=== PATIENT | male | born 1945 | race Caucasian/White ===

== ENCOUNTER 2020-11-14 12:30 | Outpatient (RCR) | payer MEDICARE, SELFPAY ==
--- NOTE | 2020-10-16 13:23 | PTOPEVAL ---
PHYSICAL THERAPY EVALUATION AND PLAN OF CARE Thank you for referring Pipo Deshpande to [facility].? The patient is scheduled to be seen for therapy? 2x/month for 1 month. Please review, sign, date and return this plan of care STEVEN. I agree with and certify that the following plan of care is medically necessary. Referring Physician Date Attending Provider: Riccardo Valente MD Evaluation Diagnosis right shoulder pain Subjective Information Patient reports that shoulder Query Text:As Reported By Patient/ pain started several months Family ago the shoulder started hurting. He received an injection a week ago and feels much better today. Pain Frequency Acute Greatest Pain Intensity 0 Pain Score Pain Score 0: Self Report Interventions Used Interventions Used By Clinicians Exercise Other Alleviating Interventions injections Upper Extremity Range of Motion Scapular/ Shoulder Range of Motion Bilateral Shoulder Flexion - Active 140 Shoulder Abduction - Active 140 Shoulder Medial Rotation - Active L1 Query Text:Reach Behind the Back Shoulder Lateral Rotation - Active T1 Query Text:Reach Behind the Head Upper Extremity Muscle Strength Testing Scapular/Shoulder Left Shoulder Flexion Strength 4+ Good + Shoulder Abduction Strength 4 Good Shoulder Medial Rotation Strength 4+ Good + Shoulder Lateral Rotation Strength 4+ Good + Right Shoulder Flexion Strength 4+ Good + Shoulder Abduction Strength 4+ Good + Shoulder Medial Rotation Strength 5 Normal Shoulder Lateral Rotation Strength 4 Good Palpation Assessment Palpation Palpation trigger points noted to upper trapezius, subscapularis, and pectoralis on right General Exercise General Exercises Side Right Exercise Location shoulder Exercise Type Active,Resistive,Stretching Exercise Description green band resisted: Query Text:Record Sets, Reps, -bilateral shoulder extension Resistance, and Position x10 -right shoulder external rotation x10 -shoulder internal rotation x10 -bilateral scaption x10 -bilateral horizontal abduction x10 -sitting upper trapezius stretch [id number] each side Manual Therapy Manual Therapy Side Right Manual Therapy Location Shoulder Patient Position Supine Treatment
--- NOTE | 2020-11-14 12:49 | PTOPEVAL ---
PHYSICAL THERAPY DISCHARGE NOTE Thank you for referring Pipo Deshpande to [facility].? Please review, sign, date and return this plan of care STEVEN. I agree with and certify that the following plan of care is medically necessary. Referring Physician Date Attending Provider: Riccardo Valente MD Discharge Diagnosis right shoulder pain Subjective Information No pain at all in the shoulder Query Text:As Reported By Patient/ except when he used too heavy Family of a weight to do exercises. He pulled back on the amount of weight and feels better . Pain Assessment Timing of Pain Assessment Timing of Pain Assessment Assessment Self Report Self Report Pain Level 0 Self Report Pain Assessment Right Shoulder(s) Reported Pain Level 0 Pain Score Pain Score 0: Self Report Upper Extremity Range of Motion Scapular/ Shoulder Range of Motion Bilateral Shoulder Flexion - Active 150 Shoulder Abduction - Active 150 Shoulder Medial Rotation - Active L2 Query Text:Reach Behind the Back Shoulder Lateral Rotation - Active T1 Query Text:Reach Behind the Head Upper Extremity Muscle Strength Testing Scapular/Shoulder Left Shoulder Flexion Strength 5 Normal Shoulder Abduction Strength 5 Normal Shoulder Medial Rotation Strength 5 Normal Shoulder Lateral Rotation Strength 5 Normal Right Shoulder Flexion Strength 5 Normal Shoulder Abduction Strength 5 Normal Shoulder Medial Rotation Strength 5 Normal Shoulder Lateral Rotation Strength 5 Normal General Exercise General Exercises Side Right Exercise Location shoulder Exercise Type Active,Resistive,Stretching Exercise Description blue band resisted: Query Text:Record Sets, Reps, -bilateral shoulder extension Resistance, and Position x10 -right shoulder external rotation x10 -shoulder internal rotation x10 -bilateral scaption x10 -bilateral horizontal abduction x10 -sitting upper trapezius stretch [id number] each side -overhead press 5# -bilateral scaption 5# -bent over row 5# Rehab Teaching Rehab Teaching Teaching Topic Rehab Teaching Topic Components Diagnosis,Follow-up Recommendations,Home Program As Pertains To Safety,Technique,Therapy Prognosis Reci
== END 2020-11-15 08:56 | disposition home or self-care (01) ==
LOC: ANHPT 12:30
PROVIDERS: PCP Family Medicine; Visit Provider Orthopaedic Surgery
DX: M25.511 Pain in right shoulder (principal)
CPT/HCPCS: 97110; 97140; 97161

== ENCOUNTER → 2021-05-02 09:04 | Outpatient (REF) | payer MEDICARE, SELFPAY | LOC: ANHLAB 09:04 | PROVIDERS: PCP Family Medicine; Visit Provider Nurse Practitioner | DX: C44.622 Squamous cell carcinoma of skin of right upper limb, including shoulder (principal) | CPT/HCPCS: 88305 ==

== ENCOUNTER → 2021-06-17 10:33 | Outpatient (REF) | payer MEDICARE, SELFPAY | LOC: ANHLAB 10:33 | PROVIDERS: PCP Family Medicine; Visit Provider Nurse Practitioner | DX: C44.622 Squamous cell carcinoma of skin of right upper limb, including shoulder (principal) | CPT/HCPCS: 88305; 88331 ==

== ENCOUNTER 2021-10-25 13:02 | Observation (INO) | payer MEDICARE, SELFPAY ==
[2021-10-25] VITALS (30 sets, daily range): BP systolic 138–169; BP diastolic 55–84; PULSE 58–68; RESP 16–25; TEMP 36.1–36.6; O2SAT 91–100; BMI 32.9
--- NOTE | ~2021-10-25 | XR_ITS ---
XR chest 2V 10/25/2021 14:03 Indication: Shortness of breath Procedure: 2 view chest Comparison: 10/28/2009 Findings: Status post median sternotomy for CABG. Borderline heart size. Bibasilar infiltrates may re present atelectasis and/or pneumonia. No significant effusion, edema or pneumothorax. Impression: 1: Bibasilar infiltrates may represent atelectasis and/or pneumonia. Reviewed, dictated and finalized at location B. Impression: 1: Bibasilar infiltrates may represent atelectasis and/or pneumonia.
--- NOTE | ~2021-10-25 | US_ITS ---
EXAMINATION: US renal BI DATE: 10/26/2021 10:01 INDICATION: Renal failure. TECHNIQUE: Multiple ultrasound grayscale images of the kidneys were obtained. COMPARISON: Ultrasound kidneys 03/22/2014 FINDINGS: The right kidney measures 10.3 x 6.1 x 6.2 cm. The left kidney measures 11.2 x 5.5 x 6.0 cm. The kidn eys demonstrate normal parenchymal echogenicity. There are cysts in the kidneys measuring up to 3.4 c m on the left. There is no hydronephrosis. The bladder is normal. IMPRESSION: 1. Normal kidney sizes. No hydronephrosis. Reviewed, dictated and finalized at location A.
--- NOTE | ~2021-10-25 | XR_ITS ---
EXAMINATION: XR chest 1V portable DATE: 10/27/2021 09:08 INDICATION: Shortness of breath. TECHNIQUE: A single frontal view of the chest was obtained. COMPARISON: Chest 2 views 10/25/2021, CT abdomen and pelvis 10/26/2009 FINDINGS: There are reticular opacities at the lung bases. No pleural effusion or pneumothorax. The h eart size is normal. Median sternotomy wires are noted. Retained epicardial pacer wires are noted. Th ere is a suture anchor in left humeral head. There are changes of distal left clavicle resection. IMPRESSION: 1. Stable reticular opacities at the lung bases, which may be atelectasis/scarring or mild pulmonary edema. Reviewed, dictated and finalized at location A. IMPRESSION: 1. Stable reticular opacities at the lung bases, which may be atelectasis/scarr ing or mild pulmonary edema.
--- NOTE | ~2021-10-25 | US_ITS ---
EXAMINATION: US venous doppler [facility] DATE: 10/26/2021 10:01 INDICATION: Lower limb edema. TECHNIQUE: Grayscale ultrasound images without and with compression and Doppler ultrasound images of the bilateral lower extremity veins were obtained. COMPARISON: None. FINDINGS: The visualized portions of right common femoral vein, profunda (deep) femoral vein, femoral vein, pop liteal vein, peroneal veins, posterior tibial veins, and greater saphenous vein outflow are patent. The visualized portions of left common femoral vein, profunda femoral vein, femoral vein, popliteal v ein, peroneal veins, posterior tibial veins, and greater saphenous vein outflow are patent. There is a moderate-sized left Miller's cyst. IMPRESSION: 1. No deep venous thrombosis. 2. Moderate-sized left Miller's cyst. Reviewed, dictated and finalized at location A.
--- NOTE | 2021-10-25 13:32 | ECG_ITS ---
Measurements Intervals [place] Rate: 61 P: -64 CA: 230 QRS: 82 QRSD: 100 T: -75 QT: 411 QTc: 416 Interpretive Statements SINUS RHYTHM WITH FIRST DEGREE AV BLOCK NONSPECIFIC ST-T CHANGES NO PREVIOUS ECG AVAILABLE FOR COMPARISON Electronically Signed On 10-26-2021 13:23:11 CDT by Sylvia Veliz M.D.
--- NOTE | 2021-10-25 13:45 | ED.SOB ---
HPI - SOB/Dyspnea General Chief Complaint: Shortness of Breath/Dyspnea Stated Complaint: sent by PCP for c/o SOB Time Seen by Provider: 10/25/21 13:32 History of Present Illness HPI Narrative: 76-year-old history of high blood pressure diabetes presents emergency room for gradual onset of shortness of breath. Patient states he is not experiencing exertional dyspnea for the last 3 weeks. Denies any chest pain. Patient is also noted increased swelling to his bilateral ankles. No known history of CHF Related Data Home Medications Medication Instructions Recorded Confirmed aloe vera 25 mg capsule See Rx Instructions PO .COMPLEX 03/08/19 08/29/21 cholecalciferol (vitamin D3) 50 2,000 unit PO DAILY 03/08/19 08/29/21 mcg (2,000 unit) tablet irbesartan 300 mg tablet 300 mg PO DAILY 03/08/19 08/29/21 L.acidophil-L.casei-B.bifid-B.longum-FOS 1 cap PO DAILY 06/21/19 08/29/21 2 billion cell-50 mg capsule (Probiotic Blend) amlodipine 5 mg tablet 10 mg PO DAILY 08/29/21 08/29/21 Allergies Allergy/AdvReac Type Severity Reaction Status Date / Time iodine Allergy Unknown Anaphylaxis Verified 10/25/21 13:02 SHELLFISH Allergy Unknown Unknown Uncoded 10/25/21 13:02 Review of Systems Review of Systems: CONSTITUTIONAL: Denies fever, chills, or sweats. EYES: Denies visual changes, redness, or discharge. ENT: Denies rhinorrhea, congestion, sore throat, or otalgia. CARDIOVASCULAR: Reports lower extremity edema RESPIRATORY: Reports dyspnea. GASTROINTESTINAL: Denies abdominal pain, nausea, vomiting, or diarrhea. GENITOURINARY: Denies dysuria or hematuria. SKIN: Denies rash or itching. MUSCULOSKELETAL: Denies back pain, joint pain, or myalgia. NEUROLOGIC: Denies headache, numbness, dizziness, or weakness. PSYCHIATRIC: Denies anxiety or depression. [facility] Past Medical History Medical History Atrial flutter Benign hypertension CKD (chronic kidney disease) stage 3, GFR 30-59 ml/min Diabetes History of cardioversion Hyperlipidemia LDL goal <70 Ischemic cardiomyopathy Proteinuria Type 2 diabetes mellitus without complication, without long-term current use of insulin last known A1c january 2020 6.2 pt states he had one in september 2020, results unknown Ulcerative colitis Dr. Cardona, will be going to [facility] Unspecified osteoarthritis, unspecified site right wrist Surgical History Surgical History H/O rotator cuff surgery History of heart surgery (~04/07/16) DC cardioversion History of knee replacement Left knee January 2016 Family History Family History Mother Family history of cardiovascular disease Hypertension Sibling Multiple sclerosis Social History Social History Smoking status: Former smoker Tobacco type: cigarettes Second hand tobacco smoke exposure: No Smoking end date: 03/09/98 Additional smoking assessment comments: 2 PPD, 30 years Alcohol intake: former Substance use: never Substance use type: does not use Gender identity (if verbalized by the patient): Male Exam Narrative: GENERAL: Well-appearing, well-nourished, no physical limitations, and in no acute distress. HEAD: Normocephalic, atraumatic. EYES: Conjunctivae normal, PERRLA and EOMI. CHEST: Clear to auscultation. No respiratory distress. No wheezes rales or rhonchi. No tenderness. HEART: Regular rate and rhythm. No murmur heard. Normal peripheral pulses. ABDOMEN: Soft, nontender, distended, normal active bowel sounds. BACK: No cervical/thoracic/lumbar tenderness, step-offs, bony abnormality; FROM EXTREMITIES: Normal range of motion. +3 pitting edema bilateral ankles. No clubbing or cyanosis SKIN: Warm, dry, no rash. No noted wounds NEURO: No focal deficits. Alert and oriented x3. MAEW. CN's II-XI intact
[2021-10-25 14:04] LABS: Basophils Absolute Auto 0.1 K/mm3 (0.0-0.1); Basophils Percent Auto 0.7 % (0.2-1.2); Eosinophils Absolute Auto 0.1 K/mm3 (0-0.3); Eosinophils Percent Auto 0.7 % (0-4.4); Hematocrit 33.1 % (42.0-52.0); Hemoglobin 10.7 g/dL (14.0-18.0); Immature Granulocyte Absolute 0.05 K/mm3 (0.00-0.031); Immature Granulocyte Percent A 0.5 % (0-0.5); Lymphocytes Absolute Auto 1.18 K/mm3 (0.9-3.2); Lymphocytes Percent Auto 11.2 % (18.3-44.2); Mean Corpuscular HGB Conc 32.3 g/dl (32-36); Mean Corpuscular Hemoglobin 30.5 pg (26-34); Mean Corpuscular Volume 94.3 fl (80-100); Mean Platelet Volume 10.1 fl (7.4-10.4); Monocytes Absolute Auto 0.7 K/mm3 (0.1-0.6); Monocytes Percent Auto 6.5 % (2.6-8.5); Neutrophils Absolute Auto 8.5 K/mm3 (1.3-6.7); Neutrophils Percent Auto 80.4 % (45.5-73.1); Platelet Count Result 301 k/mm3 (150-375); Red Blood Count 3.51 M/mm3 (4.6-6.20); Red Cell Distribution Width 13.5 % (11.5-14.5); White Blood Count 10.5 K/mm3 (4.5-10.0)
[2021-10-25 14:14] LABS: INR 1.4; Prothrombin Time 16.7 Seconds (11.1-14.7)
[2021-10-25 14:15] LABS: Partial Thromboplastin Time 29.6 SECONDS (22.3-36.8)
[2021-10-25 14:16] LABS: Alanine Aminotransferase 25 U/L (6-50); Albumin Level 3.9 g/dL (3.5-5.1); Alkaline Phosphatase 63 U/L (38-126); Anion Gap 12 mmol/L (8-16); Aspartate Amino Transferase 21 U/L (17-59); Bilirubin,Total 0.5 mg/dL (0.2-1.3); Blood Urea Nitrogen 41 mg/dL (9-20); Calcium 8.6 mg/dL (8.4-10.2); Carbon Dioxide 20 mmol/L (22-30); Chloride 107 mmol/L (98-107); Estimated CRCL calculation 20 ml/min; Estimated Glomerular Filt Rate 20; Glucose 141 mg/dL (65-110); Potassium 4.8 mmol/L (3.4-5.0); Sodium 139 mmol/L (137-145)
[2021-10-25 14:28] LABS: NT Pro B Type Natriuretic Pept 2470 pg/mL (5-100); Troponin I 0.013 ng/mL (0.000-0.034)
[2021-10-25 15:13] LABS: Appearance Urine Clear (Clear); Bilirubin Urine Negative (Negative); Blood Urine Trace-lysed (Negative); Color Urine Yellow (Yellow); Glucose Urine UA Negative (Negative); Ketones Urine Negative (Negative); Leukocyte Esterase Ur Negative LEU/UL (Negative); Nitrate Urine Negative (Negative); Protein Urine 3+ mg/dL (Negative); Urobilinogen Urine 0.2 mg/dL (<2.0); pH Urine 5.5 (5.0-9.0)
[2021-10-25 15:20] LABS: Mucus Urine Rare /lpf; RBC Urine 0-2 /hpf (0-2); WBC Urine 0-3 /hpf
[2021-10-25 15:27] LABS: Add Urine Microscopic? YES
--- NOTE | 2021-10-25 16:30 | PM.IMHP ---
H&P: HPI History of Present Illness Date/Time: 10/25/21 16:30 Chief Complaint: Shortness of breath. Narrative: This is a pleasant 76-year-old male with history of ischemic cardiomyopathy, congestive heart failure, atrial flutter, hypertension, chronic kidney disease, and diabetes who presented to the emergency department from home for evaluation of shortness of breath. Over the last several weeks he has had progressive dyspnea on lesser and lesser exertion and he has also noticed swelling in his lower extremities. He has not been sleeping well due to due to nocturia proximally 3 to 4 times a night however it does sound as though he has had orthopnea as well. He has occasional midsternal chest heaviness when he is feeling especially short of breath though he denies that it is specifically related to exertion. He has had a mild cough which is not unusual for him and it is not productive. Today he was seen at his doctor's office and due to his symptoms he was referred to the ER. Vital signs were stable on arrival in his SpO2 has been well within normal limits on room air. Pertinent labs include a WBC of 10.5, D-dimer 1.00, BUN 41, creatinine 3.10, troponin 0.013, and proBNP 2470. Chest x-ray showed bibasilar infiltrates with may represent atelectasis and or pneumonia though he gives no history to suggest pneumonia. Due to his symptoms he is being admitted overnight for diuresis. At the time my evaluation he is resting comfortably and has no specific complaints. Review of Systems Review of Systems: Twelve systems were reviewed. No fever, chills, or sweats. He denies sinus congestion and shortness of breath. No sick contacts. He has had a mild cough though it is not productive; he goes on to say this is not unusual for him. Appetite has been good. No nausea, vomiting, or diarrhea. He denies dysuria. He does get up frequently in the middle of the night to use the restroom and reports only going small amounts at a time. He is not certain whether not he is able to fully empty his bladder. He denies prior history of urinary retention. He believes his glucose has been stable. No history of sleep apnea but concerns for such. As documented, all other systems were reviewed and are negative. 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 Code status: Full code. Smoking packs per day: 3 Smoking cigarettes per day: 60.0 Years smoked: 30 Smoking pack-years: 90.00 Smoking status: Former smoker Second hand tobacco smoke exposure: No Additional smoking assessment comments: Quit in 1998. Alcohol intake: former Substance use: never Substance use type: does not use Additional living arrangements comments: The patient lives with his in [place]. 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 Spiritual care concerns: No Meds Home Medica
[2021-10-25] MEDS: FUROSEMIDE INJ 40 MG/4 ML VIAL IV PUSH (17:18)
--- NOTE | 2021-10-25 18:21 | ADMGEN ---
This patient, Pipo Deshpande, was admitted to 2 Medical Room 256-. Patient/family oriented to hospital policies and general routines including ID bracelet, bed and alarms, visiting hours, pain management, procedures, bathroom and other care routines, personal items, smoking policy, room service/diet, and visiting hours. Information on how to activate the Rapid Response Team has been discussed. Patient/Family are encouraged to report perceived risks to care and to ask questions if they do not understand what they are told or what they should do.
[2021-10-25] MEDS: INSULIN GLARGINE (*BKC) 100 UNITS/ML 28 UNITS SUB-Q (23:19)
[2021-10-25 23:37] LABS: Glucose Point of Care 208 mg/dl (65-105)
[2021-10-26] VITALS (11 sets, daily range): BP systolic 127–143; BP diastolic 57–65; PULSE 44–75; RESP 16–18; TEMP 36.4–36.9; O2SAT 95–96
[2021-10-26 05:32] LABS: Hematocrit 31.7 % (42.0-52.0); Hemoglobin 10.3 g/dL (14.0-18.0); Mean Corpuscular HGB Conc 32.5 g/dl (32-36); Mean Corpuscular Hemoglobin 30.6 pg (26-34); Mean Corpuscular Volume 94.1 fl (80-100); Mean Platelet Volume 10.7 fl (7.4-10.4); Platelet Count Result 296 k/mm3 (150-375); Red Blood Count 3.37 M/mm3 (4.6-6.20); Red Cell Distribution Width 13.3 % (11.5-14.5); White Blood Count 10.8 K/mm3 (4.5-10.0)
[2021-10-26 05:38] LABS: Hemoglobin A1C 7.4 % (<5.7)
[2021-10-26 05:40] LABS: Anion Gap 9 mmol/L (8-16); Blood Urea Nitrogen 38 mg/dL (9-20); Calcium 8.4 mg/dL (8.4-10.2); Carbon Dioxide 24 mmol/L (22-30); Chloride 109 mmol/L (98-107); Estimated CRCL calculation 20 ml/min; Estimated Glomerular Filt Rate 20; Glucose 130 mg/dL (65-110); Magnesium 2.2 mg/dL (1.6-2.3); Potassium 4.6 mmol/L (3.4-5.0); Sodium 142 mmol/L (137-145)
[2021-10-26] MEDS: LEVOTHYROXINE SODIUM 25 MCG TABLET PO (06:20)
[2021-10-26 08:16] LABS: Glucose Point of Care 97 mg/dl (65-105)
[2021-10-26] MEDS: ENOXAPARIN 30 MG/0.3 ML SYRINGE SUB-Q (09:20)
[2021-10-26] MEDS: IRBESARTAN 150 MG TABLET 300 MG PO (09:20)
[2021-10-26] MEDS: PRAVASTATIN SODIUM 20 MG TABLET PO (09:20)
[2021-10-26] MEDS: FUROSEMIDE INJ 40 MG/4 ML VIAL IV PUSH ×2 (09:20→17:17)
--- NOTE | 2021-10-26 10:45 | PM.IMPN ---
Progress Note: A&P Assessment and Plan (1) Acute exacerbation of congestive heart failure: Code(s): I50.9 - Heart failure, unspecified Status: Acute Assessment and Plan: Appears to have an exacerbation of congestive heart failure type unknown though he does have a history of ischemic cardiomyopathy echocardiogram ordered renal function 38/3.10, creatinine in 2.2-2.25 BNP 2470 Diuresis cautiously Increase to 40mg IV BID daily weights Trend urine output Trend labs (2) Chronic kidney disease: Code(s): N18.9 - Chronic kidney disease, unspecified Status: Acute Assessment and Plan: Current BUN/Cr 38/3.10 Labs from 01/2021 appears to be 2.2-2.25 Avoid nephrotoxic medications Strict I&Os Bladder scan to check for retention Renal ultrasound normal kidneys, no hydronephrosis Trend closely with diuresis Obtain urine studies, to calculate FENa score Consult Dr. Abreu (3) Insulin dependent type 2 diabetes mellitus: Code(s): E11.9 - Type 2 diabetes mellitus without complications; Z79.4 - penitentiary (current) use of insulin Status: Acute Assessment and Plan: Current glucose 130 Continue basal insulin Initiate sliding scale insulin Accu-Cheks hypoglycemic protocol hemoglobin A1c 7.4 (4) Mixed hyperlipidemia: Code(s): E78.2 - Mixed hyperlipidemia Status: Acute Assessment and Plan: Continue statin; LFTs within normal limits. (5) Benign hypertension: Code(s): I10 - Essential (primary) hypertension Status: Acute Assessment and Plan: BP 127/58. Continue irbesartan 300mg PO daily, amlodipine 5mg PO at night Trend BP Adjust therapy as indicated (6) Hypothyroidism: Code(s): E03.9 - Hypothyroidism, unspecified Status: Acute Assessment and Plan: Continue levothyroxine TSH 3.770 (7) Abnormal chest x-ray: Code(s): R93.89 - Abnormal findings on diagnostic imaging of other specified body structures Status: Acute Assessment and Plan: He does not give a history to suggest pneumonia. Probable atelectasis, encourage incentive spirometry. (8) Elevated d-dimer: Code(s): R79.89 - Other specified abnormal findings of blood chemistry Status: Acute Assessment and Plan: D. Dimer elevated at 1.00 Edema bilaterally Venous doppler ordered VQ scan cancelled Does not seem to be a PE, no tachycardia, shortness of breath, oxygen supplementation not needed. Time Spent With Patient Time with patient: Greater than 35 minutes Subjective Date/time seen: 10/26/21 1045 Interval history: 10/26/211044 Patient is doing ok. He denies any chest pain, shortness of breath, weakness, fatigue. He stated that he does not feel sick, but he knows that he is. He did state that he sees Dr. Abreu for his renal function, and stated that he has his labs checked every 6 months and his creatinine has not been that high. 10/25/21 16:30 This is a pleasant 76-year-old male with history of ischemic cardiomyopathy, congestive heart failure, atrial flutter, hypertension, chronic kidney disease, and diabetes who presented to the emergency department from home for evaluation of shortness of breath. Over the last several weeks he has had progressive dyspnea on lesser and lesser exertion and he has also noticed swelling in his lower extremities. He has not been sleeping well due to due to nocturia proximally 3 to 4 times a night however it does sound as though he has had orthopnea as well. He has occasional midsternal chest heaviness when he is feeling especially short of breath though he denies that it is specifically related to exertion. He has had a mild cough which is not unusual for him and it is not productive. Today he was seen at his doctor's office and due to his symptoms he was referred to the ER. Vital signs were stable
--- NOTE | 2021-10-26 10:45 | P.PNIM_ITS ---
Progress Note: A&P Assessment and Plan (1) Acute exacerbation of congestive heart failure: Code(s): I50.9 - Heart failure, unspecified Status: Acute Assessment and Plan: * Appears to have an exacerbation of congestive heart failure * type unknown though he does have a history of ischemic cardiomyopathy * echocardiogram ordered * renal function 38/3.10, creatinine in 2.2-2.25 * BNP 2470 * Diuresis cautiously * Increase to 40mg IV BID * daily weights * Trend urine output * Trend labs (2) Chronic kidney disease: Code(s): N18.9 - Chronic kidney disease, unspecified Status: Acute Assessment and Plan: * Current BUN/Cr 38/3.10 * Labs from 01/2021 appears to be 2.2-2.25 * Avoid nephrotoxic medications * Strict I&Os * Bladder scan to check for retention * Renal ultrasound normal kidneys, no hydronephrosis * Trend closely with diuresis * Obtain urine studies, to calculate FENa score * Consult Dr. 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 (5) Benign hypertension: Code(s): I10 - Essential (primary) hypertension Status: Acute Assessment and Plan: * BP 127/58. * Continue irbesartan 300mg PO daily, amlodipine 5mg PO at night * Trend BP * Adjust therapy as indicated (6) Hypothyroidism: Code(s): E03.9 - Hypothyroidism, unspecified Status: Acute Assessment and Plan: * Continue levothyroxine * TSH 3.770 (7) Abnormal chest x-ray: Code(s): R93.89 - Abnormal findings on diagnostic imaging of other specified body structures Status: Acute Assessment and Plan: * He does not give a history to suggest pneumonia. Probable atelectasis, encourage incentive spirometry. (8) Elevated d-dimer: Code(s): R79.89 - Other specified abnormal findings of blood chemistry Status: Acute Assessment and Plan: * D. Dimer elevated at 1.00 * Edema bilaterally * Venous doppler ordered * VQ scan cancelled * Does not seem to be a PE, no tachycardia, shortness of breath, oxygen supplementation not needed. Time Spent With Patient Time with patient: Greater than 35 minutes Subjective Date/time seen: 10/26/21 1045 Interval history: 10/26/21 104 Patient is doing ok. He denies any chest pain, shortness of breath, weakness, fatigue. He stated that he does not feel sick, but he knows that he is. He did state that he sees Dr. Abreu for his renal function, and stated that he has his labs checked every 6 months and his creatinine has not been that high. 10/25/21 16:30 This is a pleasant 76-year-old male with history of ischemic cardiomyopathy, congestive heart failure, atrial flutter, hypertension, chronic kidney disease, and diabetes who presented to the emergency department from home for evaluation of shortness of breath. Over the last several weeks he has had progressive dyspnea on lesser a
[2021-10-26 10:53] LABS: Creatinine Urine 59.8 mg/dL; Urea Random Urine 319 MG/DL
[2021-10-26 10:58] LABS: Sodium Urine Random 128 meq/L
[2021-10-26 11:57] LABS: Glucose Point of Care 125 mg/dl (65-105)
--- NOTE | 2021-10-26 15:46 | PM.CNCAR ---
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: Code(s): I50.41 - Acute combined systolic (congestive) and diastolic (congestive) heart failure Status: Acute Assessment and Plan: New onset CHF, EF 45% Aggravated by Na+ intake, worsening renal fxn and recurrent atrial flutter Improving w/ IV diuretic Agree w/ current Lasix 40 mg IVP BID Unable to add a BB due to mild bradycardia Hesitant to try spironolactone w/ GFR in this range Farxiga is an option, though not likely to be very effective w/ GFR in this range Cont irbesartan Switch to po furosemide in 1-2 days Evaluate for recurrent ischemic dz w Ellie as OPT Daily BMP Insructed on low Na+ diet (2) Atrial flutter: Qualifiers: Atrial flutter type: unspecified Qualified Code(s): I48.92 - Unspecified atrial flutter Code(s): I48.92 - Unspecified atrial flutter Status: Acute Assessment and Plan: H/O atrial flutter, maintaining NSR since 2019 Now w/ recurrent a flutter, HR controlled w/o rate-limiting agents At risk for bradycardia if cardioversion attempted. Pt can FU w/ DR. Gallegos for further discussion. At risk for cardioembolic events; start Eliquis 5 mg BID (3) Coronary artery disease: Code(s): I25.10 - Atherosclerotic heart disease of [place] coronary artery without angina pectoris Status: Acute Assessment and Plan: H/O [place] thought 2nd to coronary artery spasm, complicated by VSD. Stable for many years No typical angina Lexiscan as OPT (4) CKD stage 4 due to type 2 diabetes mellitus: Code(s): E11.22 - Type 2 diabetes mellitus with diabetic chronic kidney disease; N18.4 - Chronic kidney disease, stage 4 (severe) Status: Acute Assessment and Plan: CKD progressing History of Present Illness History of Present Illness Consult date/time: 10/26/21 15:46 Reason For Visit: New Onset CHF Narrative: Pipo Deshpande is a 76 y.o. male whom I was asked to see at the request of lAexei Hutton NP for my advice and opinion regarding his new onset CHF in consultation. He also has CKD now stage 4. The patient noted EDWARDS since he came back from the [facility] 1 month ago which was progressively worse. He started having LE edema for a few days [employer] as well as orthopnea. Some chest heaviness asso w/ his SOB. No typical angina or palpitations. He was admitted on 10/25/2021 w/ CHF. Pro BNP was 2500. Creatinine noted to be higher this admission. He has been started on furosemide 40 mg IVP BID with improvement. Echo as below, EF 45%. Looks like SBP running high most of the time. As for salt, I can take it or leave it. I usually take it and salts most fo his food. No NSAIA. My is getting all excited about this. She's already called the undertaker. Review of Systems Constitutional: Constitutional: Denies fever(s) Eyes: Eyes: Reports no additional eye complaints ENT: Denies epistaxis Cardiovascular: Cardiovascular: Denies chest pain, Reports pedal edema, Reports leg edema, Denies lightheadedness, Denies palpitations and Reports dyspnea Respiratory: Respiratory: Denies chest congestion, Reports dyspnea and Reports dyspnea on exertion Gastrointestinal: Gastrointestinal: Denies abdominal pain, Denies hematochezia and Denies hematemesis Comments: Increase in abdominal girth Genitourinary: Genitourinary: Denies hematuria Musculoskeletal: Musculoskeletal: Reports no additional musculoskeletal complaints Integumentary/Breasts: Skin/Breast: Reports system reviewed and no additional complaints, except as docu Neurologic: Reports system reviewed and no additional complaints, except as documented, Denies behavioral changes and Denies confusion Psychiatric: Psychiatric: Denies behavioral nico
[2021-10-26] MEDS: INSULIN GLARGINE (*BKC) 100 UNITS/ML 28 UNITS SUB-Q (17:24)
[2021-10-26 17:25] LABS: Glucose Point of Care 131 mg/dl (65-105)
[2021-10-26] MEDS: amLODIPine BESYLATE 5 MG TABLET 10 MG PO (21:29)
[2021-10-26] MEDS: APIXABAN 5 MG TABLET PO (21:29)
[2021-10-26] MEDS: CHOLECALCIFEROL 1,000 UNITS TABLET 4000 UNITS PO (21:29)
[2021-10-26] MEDS: FOLIC ACID 1 MG TABLET PO (21:29)
--- NOTE | 2021-10-26 22:40 | ECHO_ITS ---
Patient Info Name: Pipo Deshpande Age: 76 years : 1945 Gender: Male Ht: 67 in Wt: 218 lbs BSA: 2.20 m2 HR: 68 bpm BP: 127 / 58 mmHg Heart Rhythm: Atrial Fibrillation Technical Quality: Good Exam Date: 10/26/2021 7:55 AM Exam Location: [facility] Patient Status: Outpatient Admit Date: 10/25/2021 Staff Ordering Physician: Krysten Shrestha PA-C Care Program Director: Francisca Loyola RDCS Attending Provider: Jeanine Valecnia DO Referring Physician: Henrietta NGUYEN; Exam Type: CA echo doppler color flow Study Info Indications I50.20 - Unspecified systolic (congestive) heart failure Complete two-dimensional, color flow and Doppler transthoracic echocardiogram is performed. Summary 1. Complete two-dimensional, color flow and Doppler transthoracic echocardiogram is performed. 2. Normal left ventricular size with mild concentric hypertrophy. Mild reduction in left ventricular systolic function because of severe hypokinesis to akinesis of the septum. Ejection fraction estimated to be 45-50%. Diastolic function is indeterminate. 3. Mild to moderate mitral regurgitation. 4. Moderate tricuspid regurgitation. 5. No pulmonary hypertension noted on this study, although the tricuspid regurgitant jet was not well visualized. 6. Left atrial chamber dimension is moderately enlarged. 7. Right atrial chamber dimension is mildly enlarged. 8. Underlying rhythm is probably atrial fibrillation. 9. Technically difficult study. Left Ventricle Left ventricular chamber dimension is normal. Left ventricular systolic function is normal, estimated at 45-50%. There is mildly increased left ventricular wall thickness. Left ventricular septal wall motion is normal. The left ventricular diastolic function is indeterminate. Right Ventricle Right ventricular chamber dimension is normal. Right ventricular systolic function is normal. Left Atria Left atrial chamber dimension is moderately enlarged. Right Atria Right atrial chamber dimension is mildly enlarged. Aortic Valve The aortic valve is trileaflet. There is no aortic valve sclerosis. There is no aortic valve stenosis. There is no aortic valve regurgitation. There is mild aortic valve calcification. Pulmonic Valve The pulmonic valve is normal. There is no pulmonic valve stenosis. There is no pulmonic regurgitation. Mitral Valve The mitral valve has normal leaflets. There is no mitral valve stenosis. There is mild to moderate mitral valve regurgitation. Tricuspid Valve The tricuspid valve leaflets are normal. There is no significant tricuspid valve stenosis. There is moderate tricuspid valve regurgitation. No pulmonary hypertension, estimated pulmonary arterial systolic pressure is 21 mmHg. Pericardium/Pleural The pericardium appears normal. There is no pericardial effusion. Inferior Vena Cava Normal inferior vena cava with >50% collapse upon inspiration consistent with Empty right atrial pressure, 15 mmHg. Aorta The aortic root size at the sinus of Valsalva is normal. The prox ascending aorta size is normal. Left Ventricular Outflow Tract Name Value Normal LVOT 2D LVOT Diameter 2.1 cm LVOT Dopp
[2021-10-27] VITALS (9 sets, daily range): BP systolic 132–150; BP diastolic 58–64; PULSE 41–65; RESP 16–18; TEMP 36.2–36.6; O2SAT 96–97
[2021-10-27 05:12] LABS: Basophils Absolute Auto 0.1 K/mm3 (0.0-0.1); Basophils Percent Auto 0.8 % (0.2-1.2); Eosinophils Absolute Auto 0.3 K/mm3 (0-0.3); Eosinophils Percent Auto 3.4 % (0-4.4); Hemoglobin 10.2 g/dL (14.0-18.0); Immature Granulocyte Absolute 0.03 K/mm3 (0.00-0.031); Immature Granulocyte Percent A 0.3 % (0-0.5); Lymphocytes Absolute Auto 1.59 K/mm3 (0.9-3.2); Mean Corpuscular HGB Conc 32.9 g/dl (32-36); Mean Corpuscular Hemoglobin 31.1 pg (26-34); Mean Corpuscular Volume 94.5 fl (80-100); Mean Platelet Volume 10.4 fl (7.4-10.4); Monocytes Absolute Auto 0.8 K/mm3 (0.1-0.6); Monocytes Percent Auto 8.2 % (2.6-8.5); Neutrophils Absolute Auto 7.1 K/mm3 (1.3-6.7); Neutrophils Percent Auto 71.3 % (45.5-73.1); Platelet Count Result 269 k/mm3 (150-375); Red Blood Count 3.28 M/mm3 (4.6-6.20); Red Cell Distribution Width 13.4 % (11.5-14.5); White Blood Count 9.9 K/mm3 (4.5-10.0)
[2021-10-27 05:31] LABS: Alanine Aminotransferase 19 U/L (6-50); Albumin Level 3.6 g/dL (3.5-5.1); Alkaline Phosphatase 62 U/L (38-126); Anion Gap 10 mmol/L (8-16); Aspartate Amino Transferase 15 U/L (17-59); Bilirubin,Total 0.2 mg/dL (0.2-1.3); Blood Urea Nitrogen 39 mg/dL (9-20); Calcium 8.1 mg/dL (8.4-10.2); Carbon Dioxide 22 mmol/L (22-30); Chloride 108 mmol/L (98-107); Estimated CRCL calculation 21 ml/min; Estimated Glomerular Filt Rate 20; Glucose 94 mg/dL (65-110); Magnesium 2.1 mg/dL (1.6-2.3); Potassium 4.3 mmol/L (3.4-5.0); Sodium 140 mmol/L (137-145)
[2021-10-27] MEDS: LEVOTHYROXINE SODIUM 25 MCG TABLET PO (06:14)
[2021-10-27 08:33] LABS: Glucose Point of Care 107 mg/dl (65-105)
[2021-10-27] MEDS: IRBESARTAN 150 MG TABLET 300 MG PO (08:40)
[2021-10-27] MEDS: APIXABAN 5 MG TABLET PO ×2 (08:40→20:02)
[2021-10-27] MEDS: FUROSEMIDE INJ 40 MG/4 ML VIAL IV PUSH ×2 (08:40→17:40)
[2021-10-27] MEDS: PRAVASTATIN SODIUM 20 MG TABLET PO (08:41)
--- NOTE | 2021-10-27 09:15 | PM.IMPN ---
Progress Note: A&P Assessment and Plan (1) Acute exacerbation of congestive heart failure: Code(s): I50.9 - Heart failure, unspecified Status: Acute Assessment and Plan: Appears to have an exacerbation of congestive heart failure type unknown though he does have a history of ischemic cardiomyopathy echocardiogram EF of 45-50% with undetermined DD Appears to be an exacerbation of combined diastolic and systolic heart failure. Could also be exacerbated secondary to afib/flutter renal function 38/3.10, creatinine in 2.2-2.25 BNP 2470 Diuresis cautiously Increase to 40mg IV BID, convert to PO in the am daily weights Trend urine output Trend labs (2) Chronic kidney disease: Code(s): N18.9 - Chronic kidney disease, unspecified Status: Acute Assessment and Plan: Current BUN/Cr 39/3.00 Labs from 01/2021 appears to be 2.2-2.25, [facility] showed a baseline of 2.7 Avoid nephrotoxic medications Strict I&Os Bladder scan to check for retention Renal ultrasound normal kidneys, no hydronephrosis Trend closely with diuresis Obtain urine studies, to calculate FENa score Consult Dr. 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 (5) Benign hypertension: Code(s): I10 - Essential (primary) hypertension Status: Acute Assessment and Plan: BP 139/64 Continue irbesartan 300mg PO daily, amlodipine 5mg PO at night Trend BP Adjust therapy as indicated (6) Hypothyroidism: Code(s): E03.9 - Hypothyroidism, unspecified Status: Acute Assessment and Plan: Continue levothyroxine TSH 3.770 (7) Abnormal chest x-ray: Code(s): R93.89 - Abnormal findings on diagnostic imaging of other specified body structures Status: Acute Assessment and Plan: He does not give a history to suggest pneumonia. Probable atelectasis, encourage incentive spirometry. (8) Elevated d-dimer: Code(s): R79.89 - Other specified abnormal findings of blood chemistry Status: Acute Assessment and Plan: D. Dimer elevated at 1.00 Edema bilaterally Venous doppler negative for DVT VQ scan cancelled Does not seem to be a PE, no tachycardia, shortness of breath, oxygen supplementation not needed. (9) Atrial flutter: Qualifiers: Atrial flutter type: unspecified Qualified Code(s): I48.92 - Unspecified atrial flutter Code(s): I48.92 - Unspecified atrial flutter Status: Acute Assessment and Plan: EKG shows aflutter Eliquis started Possible cardioversion, however having some pretty significant bradycardia Telemonitor Time Spent With Patient Time with patient: Greater than 35 minutes Subjective Date/time seen: 10/27/21914 Interval history: 10/27/21914 Doing ok today. Does not have any current complaints. He is wanting to go home. Explained to him that he is still pretty swollen. Talked to him also about needing further diuresis. Will switch him to PO tomorrow and could probably send him out in the afternoon if all parties agree. He denies any complaints today. 10/26/21 1045 Patient is doing ok. He denies any chest pain, shortness of breath, weakness, fatigue. He stated that he does not feel sick, but he knows that he is. He did state that he sees Dr. Abreu for his renal function, and stated that he has his labs checked every 6 months and his creatinine
--- NOTE | 2021-10-27 09:15 | P.PNIM_ITS ---
Progress Note: A&P Assessment and Plan (1) Acute exacerbation of congestive heart failure: Code(s): I50.9 - Heart failure, unspecified Status: Acute Assessment and Plan: * Appears to have an exacerbation of congestive heart failure * type unknown though he does have a history of ischemic cardiomyopathy * echocardiogram EF of 45-50% with undetermined DD * Appears to be an exacerbation of combined diastolic and systolic heart failure. * Could also be exacerbated secondary to afib/flutter * renal function 38/3.10, creatinine in 2.2-2.25 * BNP 2470 * Diuresis cautiously * Increase to 40mg IV BID, convert to PO in the am * daily weights * Trend urine output * Trend labs (2) Chronic kidney disease: Code(s): N18.9 - Chronic kidney disease, unspecified Status: Acute Assessment and Plan: * Current BUN/Cr 39/3.00 * Labs from 01/2021 appears to be 2.2-2.25, [facility] showed a baseline of 2.7 * Avoid nephrotoxic medications * Strict I&Os * Bladder scan to check for retention * Renal ultrasound normal kidneys, no hydronephrosis * Trend closely with diuresis * Obtain urine studies, to calculate FENa score * Consult Dr. 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 (5) Benign hypertension: Code(s): I10 - Essential (primary) hypertension Status: Acute Assessment and Plan: * BP 139/64 * Continue irbesartan 300mg PO daily, amlodipine 5mg PO at night * Trend BP * Adjust therapy as indicated (6) Hypothyroidism: Code(s): E03.9 - Hypothyroidism, unspecified Status: Acute Assessment and Plan: * Continue levothyroxine * TSH 3.770 (7) Abnormal chest x-ray: Code(s): R93.89 - Abnormal findings on diagnostic imaging of other specified body structures Status: Acute Assessment and Plan: * He does not give a history to suggest pneumonia. Probable atelectasis, encourage incentive spirometry. (8) Elevated d-dimer: Code(s): R79.89 - Other specified abnormal findings of blood chemistry Status: Acute Assessment and Plan: * D. Dimer elevated at 1.00 * Edema bilaterally * Venous doppler negative for DVT * VQ scan cancelled * Does not seem to be a PE, no tachycardia, shortness of breath, oxygen supplementation not needed. (9) Atrial flutter: Qualifiers: Atrial flutter type: unspecified Qualified Code(s): I48.92 - Unspecified atrial flutter Code(s): I48.92 - Unspecified atrial flutter Status: Acute Assessment and Plan: * EKG shows aflutter * Eliquis started * Possible cardioversion, however having some pretty significant bradycardia * Telemonitor Time Spent With Patient Time with patient: Greater than 35 minutes Subjective Date/time seen: 10/27/21914 Interval history: 10/27/21914 Doing o
--- NOTE | 2021-10-27 10:06 | P.PNCA_ITS ---
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: Code(s): I50.41 - Acute combined systolic (congestive) and diastolic (congestive) heart failure Status: Acute Assessment and Plan: New onset CHF, EF 45% (no change in EF) * Aggravated by Na+ intake, worsening renal fxn and recurrent atrial flutter * Improving w/ IV diuretic * Agree w/ current Lasix 40 mg IVP BID * Unable to add a BB due to mild bradycardia * Hesitant to try spironolactone w/ GFR in this range * Farxiga is an option, though not likely to be very effective w/ GFR in this range * Cont irbesartan * Switch to po furosemide in 1-2 days * Evaluate for recurrent ischemic dz w Ellie as OPT * Daily BMP * Instructed on low Na+ diet (2) Atrial flutter: Qualifiers: Atrial flutter type: unspecified Qualified Code(s): I48.92 - Unspecified atrial flutter Code(s): I48.92 - Unspecified atrial flutter Status: Acute Assessment and Plan: H/O atrial flutter, maintaining NSR since 2019 * Now w/ recurrent a flutter, HR controlled w/o rate-limiting agents * Bradycardic at times, HR in 40's no sx * At risk for severe bradycardia if cardioversion attempted.? Pt can FU w/ DR. Gallegos for further discussion. * At risk for cardioembolic events; start Eliquis 5 mg BID * As bradycardia progresses over time, may eventually need a pacemaker. (3) Coronary artery disease: Code(s): I25.10 - Atherosclerotic heart disease of [place] coronary artery without angina pectoris Status: Acute Assessment and Plan: H/O? [place] thought 2nd to coronary artery spasm, complicated by VSD. * Stable for many years * No typical angina * Lexiscan as OPT (4) CKD stage 4 due to type 2 diabetes mellitus: Code(s): E11.22 - Type 2 diabetes mellitus with diabetic chronic kidney disease; N18.4 - Chronic kidney disease, stage 4 (severe) Status: Acute Assessment and Plan: CKD progressing Subjective Date/time seen: FU for acute new onset systolic and diastolic CHF, recurrent atrial flutter, intermittent bradycardia, CAD. Also has progressive CKD secondary to diabetes. 10/27/21 10:06 Feels fine, wants to go home. Up and about in his room with no shortness of breath, urinating a lot with his IV Lasix. Yesterday HR rather abruptly declined in HR to 40's yesterday, no sx. Tele: Atrial flutter, heart rates 40s to 70s. Review of Systems Review of Systems: No chest pain, shortness of breath, EDWARDS, dizziness, abdominal pain. Still with persistent edema but improved. Frequent urination due to furosemide. Exam Narrative: Animated pleasant older male a up and about in his room, no distress Const: General: cooperative, healthy appearing and comfortable; No confusion Orientation/consciousness: oriented to person, patient oriented x3 and No confusion Eyes: EOM: EOMs intact bilaterally Resp: Effort & Inspection: normal respiratory effort Auscultation: clear to auscultation bilaterally Cardio: Rate: bradycardic Rhythm: abnormal rhythm irregularly irregular GI: Inspection: normal to inspection GI Palp: No abdominal tenderness Skin: General skin exam: no rashes or lesions noted Neuro: General: oriented to person, patient oriented x3 and No confusion Extrem: Right lower extremity: edema Left lower extremity: edema Other
--- NOTE | 2021-10-27 10:06 | PM.PNCARD ---
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: Code(s): I50.41 - Acute combined systolic (congestive) and diastolic (congestive) heart failure Status: Acute Assessment and Plan: New onset CHF, EF 45% (no change in EF) Aggravated by Na+ intake, worsening renal fxn and recurrent atrial flutter Improving w/ IV diuretic Agree w/ current Lasix 40 mg IVP BID Unable to add a BB due to mild bradycardia Hesitant to try spironolactone w/ GFR in this range Farxiga is an option, though not likely to be very effective w/ GFR in this range Cont irbesartan Switch to po furosemide in 1-2 days Evaluate for recurrent ischemic dz w Ellie as OPT Daily BMP Instructed on low Na+ diet (2) Atrial flutter: Qualifiers: Atrial flutter type: unspecified Qualified Code(s): I48.92 - Unspecified atrial flutter Code(s): I48.92 - Unspecified atrial flutter Status: Acute Assessment and Plan: H/O atrial flutter, maintaining NSR since 2019 Now w/ recurrent a flutter, HR controlled w/o rate-limiting agents Bradycardic at times, HR in 40's no sx At risk for severe bradycardia if cardioversion attempted.? Pt can FU w/ DR. Gallegos for further discussion. At risk for cardioembolic events; start Eliquis 5 mg BID As bradycardia progresses over time, may eventually need a pacemaker. (3) Coronary artery disease: Code(s): I25.10 - Atherosclerotic heart disease of [place] coronary artery without angina pectoris Status: Acute Assessment and Plan: H/O? [place] thought 2nd to coronary artery spasm, complicated by VSD. Stable for many years No typical angina Lexiscan as OPT (4) CKD stage 4 due to type 2 diabetes mellitus: Code(s): E11.22 - Type 2 diabetes mellitus with diabetic chronic kidney disease; N18.4 - Chronic kidney disease, stage 4 (severe) Status: Acute Assessment and Plan: CKD progressing Subjective Date/time seen: FU for acute new onset systolic and diastolic CHF, recurrent atrial flutter, intermittent bradycardia, CAD. Also has progressive CKD secondary to diabetes. 10/27/21 10:06 Feels fine, wants to go home. Up and about in his room with no shortness of breath, urinating a lot with his IV Lasix. Yesterday HR rather abruptly declined in HR to 40's yesterday, no sx. Tele: Atrial flutter, heart rates 40s to 70s. Review of Systems Review of Systems: No chest pain, shortness of breath, EDWARDS, dizziness, abdominal pain. Still with persistent edema but improved. Frequent urination due to furosemide. Exam Narrative: Animated pleasant older male a up and about in his room, no distress Const: General: cooperative, healthy appearing and comfortable; No confusion Orientation/consciousness: oriented to person, patient oriented x3 and No confusion Eyes: EOM: EOMs intact bilaterally Resp: Effort & Inspection: normal respiratory effort Auscultation: clear to auscultation bilaterally Cardio: Rate: bradycardic Rhythm: abnormal rhythm irregularly irregular GI: Inspection: normal to inspection GI Palp: No abdominal tenderness Skin: General skin exam: no rashes or lesions noted Neuro: General: oriented to person, patient oriented x3 and No confusion Extrem: Right lower extremity: edema Left lower extremity: edema Other: Mild moderate lower tibial edema Psych: Appearance: grossly normal Mental Status: mental status grossly normal Objective Data Vital Signs Vital Signs: Vital Signs - 24 hr 10/26/21 12:04 10/26/21 14:49 10/26/21 16:01 Temperature 98.5 F Pulse Rate 66 58 L 62 Respiratory Rate 16 Blood Pressure 140/57 L Pulse Oximetry 96 Oxygen Delivery 10/26/21 13:36 10/26/21 16:45 10/26/21 19:23 Temperature Pulse Rate 44 L 52 L Respiratory Rate Blood Pressure Pulse Oximetry Oxygen Delivery Room Air 10/26/21 21:20 08
--- NOTE | 2021-10-27 10:20 | PM.CNNEP ---
Assessment and Plan Assessment and plan (1) Chronic kidney disease, stage IV (severe): Code(s): N18.4 - Chronic kidney disease, stage 4 (severe) Status: Chronic Plan 1. Pipo has chronic kidney disease. This is due to hypertension, and diabetes. His baseline creatinine seems to be about 2.3 which gives him a GFR of 23 and stage 4 chronic kidney disease. 2. The patient has a higher than usual creatinine right now. Of course this is [facility] lab and his baseline of 2.7 is at [facility] but still it seems like his kidney function is a little lower than it normally is. He had ultrasound which is unremarkable. His urine electrolytes are non pre renal. Fractional excretion of urea is 41 suggesting intrinsic disease as well. I do not think he is dehydrated. His LV is good enough that he should not have cardiorenal syndrome. With moderate tricuspid regurgitation, his renal venous blood pressure might be high inhibiting renal function. So his creatinine might improve with diuretics. He could have progression of his chronic kidney disease as well and his creatinine may not get better at all and this might be a new baseline as well. He had an ultrasound which ruled out obstruction. Will check a total CK to rule out rhabdomyolysis but I doubt this. His urinalysis shows 3+ protein but he always has protein. I do not think he has a glomerulonephritis or interstitial nephritis. At this point will continue diuretics and follow the creatinine. 3. Electrolytes look okay. Sodium, potassium, and bicarbonate are all okay. 4. The patient has swelling. This could be from sleep apnea, proteinuria, or tricuspid regurg. He is also on amlodipine which can worsen swelling as well. He is off the amlodipine. He is getting diuretics. 5. The patient has hypertension. His blood pressure is doing pretty well this morning. It has been ranging from 120-170. 6. The patient has diabetes. On Accu-Cheks and sliding scale per hospitalist. 7. The patient probably has sleep apnea. Sleep test will be done as an outpatient. 8. The patient has coronary artery disease, a flutter, valvular issues. Cardiology is following the patient. History of Present Illness Reason for Consult Consult date: 10/31/21 Chief Complaint Chief complaint: New Onset CHF History of Present Illness Narrative: Pipo is a very pleasant 76-year-old gentleman who has multiple medical problems including hypertension, diabetes, chronic kidney disease with a baseline creatinine of about about 2.7, history of a flutter, coronary disease status post CT and acute VSD requiring repair, hyperlipidemia, hypothyroidism, proteinuria, ulcerative colitis which is in remission, and B12 deficiency. Patient says he was well until about a month ago when he noted that he has had gradually progressive shortness of breath. At 1st it was just when walking up steps or walking a long way but more recently it has been just walking group home across the room and he would get short of breath. Patient also developed swelling about 2 weeks ago which gradually has worsened. The patient went for a sleep study earlier this week and with the swelling and shortness of breath and the techs said that they should not do this sleep apnea and he should go to see his PCP. The patient then went to Dr. Tello on Thursday. She saw him and told him to go to the emergency room. In the ER he was evaluated. He is found to be short of breath. He had swelling. Chest x-ray showed by basilar infiltrates. EKG showed a flutter with a heart rate of 61. His creatinine was also elevated to 3.0. He was given diuretics in the ER and admitted to the hospital. Here he is given more diuretics because of the shortness of breath and swelling. He says he feels better but he is still swollen short of breath. Venous Dopplers were done which were negative. Renal sonogram was done which was unremarkable. Echocardiogram was done which showed an E
[2021-10-27 12:00] LABS: Glucose Point of Care 160 mg/dl (65-105)
[2021-10-27 17:23] LABS: Glucose Point of Care 151 mg/dl (65-105)
[2021-10-27] MEDS: INSULIN GLARGINE (*BKC) 100 UNITS/ML 28 UNITS SUB-Q (17:40)
[2021-10-27] MEDS: amLODIPine BESYLATE 5 MG TABLET 10 MG PO (20:02)
[2021-10-27] MEDS: CHOLECALCIFEROL 1,000 UNITS TABLET 4000 UNITS PO (20:02)
[2021-10-27] MEDS: FOLIC ACID 1 MG TABLET PO (20:02)
[2021-10-28] VITALS (10 sets, daily range): BP systolic 133–145; BP diastolic 53–78; PULSE 46–85; RESP 16–20; TEMP 36.2–36.4; O2SAT 95–98
[2021-10-28] MEDS: LEVOTHYROXINE SODIUM 25 MCG TABLET PO (05:33)
[2021-10-28 06:04] LABS: Albumin Level 3.9 g/dL (3.5-5.1); Anion Gap 12 mmol/L (8-16); Blood Urea Nitrogen 40 mg/dL (9-20); Calcium 8.1 mg/dL (8.4-10.2); Carbon Dioxide 24 mmol/L (22-30); Chloride 103 mmol/L (98-107); Estimated CRCL calculation 23 ml/min; Estimated Glomerular Filt Rate 23; Glucose 106 mg/dL (65-110); Phosphorus 5.1 mg/dL (2.5-4.5); Potassium 4.6 mmol/L (3.4-5.0); Sodium 139 mmol/L (137-145)
[2021-10-28 08:11] LABS: Glucose Point of Care 102 mg/dl (65-105)
[2021-10-28] MEDS: FUROSEMIDE 40 MG TABLET PO (08:36)
[2021-10-28] MEDS: PRAVASTATIN SODIUM 20 MG TABLET PO (08:36)
[2021-10-28] MEDS: APIXABAN 5 MG TABLET PO ×2 (08:36→21:01)
[2021-10-28] MEDS: IRBESARTAN 150 MG TABLET 300 MG PO (08:36)
--- NOTE | 2021-10-28 10:45 | PM.IMPN ---
Progress Note: A&P Assessment and Plan (1) Acute exacerbation of congestive heart failure: Code(s): I50.9 - Heart failure, unspecified Status: Acute Assessment and Plan: Appears to have an exacerbation of congestive heart failure type unknown though he does have a history of ischemic cardiomyopathy echocardiogram EF of 45-50% with undetermined DD Appears to be an exacerbation of combined diastolic and systolic heart failure. Could also be exacerbated secondary to afib/flutter renal function 40/2.70, baseline creatinine in 2.2-2.25 BNP 2470 Diuresis cautiously Converted lasix to 40mg PO Daily daily weights Trend urine output Trend labs (2) Chronic kidney disease: Code(s): N18.9 - Chronic kidney disease, unspecified Status: Acute Assessment and Plan: Current BUN/Cr 40/2.70 Labs from 01/2021 appears to be 2.2-2.25, [facility] showed a baseline of 2.7 Avoid nephrotoxic medications Strict I&Os Bladder scan to check for retention Renal ultrasound normal kidneys, no hydronephrosis Trend closely with diuresis Obtain urine studies: Urine sodium 128, Urea 319, Cr 59.8 FEUrea 36.0 intrinsic renal disease Consult Dr. Abreu (3) Insulin dependent type 2 diabetes mellitus: Code(s): E11.9 - Type 2 diabetes mellitus without complications; Z79.4 - senior living (current) use of insulin Status: Acute Assessment and Plan: Current glucose 106 Continue basal insulin Initiate sliding scale insulin Accu-Cheks hypoglycemic protocol hemoglobin A1c 7.4 (4) Mixed hyperlipidemia: Code(s): E78.2 - Mixed hyperlipidemia Status: Acute Assessment and Plan: Continue statin; LFTs within normal limits. (5) Benign hypertension: Code(s): I10 - Essential (primary) hypertension Status: Acute Assessment and Plan: BP 138/73 Continue irbesartan 300mg PO daily, amlodipine 5mg PO at night Trend BP Adjust therapy as indicated (6) Hypothyroidism: Code(s): E03.9 - Hypothyroidism, unspecified Status: Acute Assessment and Plan: Continue levothyroxine TSH 3.770 (7) Abnormal chest x-ray: Code(s): R93.89 - Abnormal findings on diagnostic imaging of other specified body structures Status: Acute Assessment and Plan: He does not give a history to suggest pneumonia. Probable atelectasis, encourage incentive spirometry. (8) Elevated d-dimer: Code(s): R79.89 - Other specified abnormal findings of blood chemistry Status: Acute Assessment and Plan: D. Dimer elevated at 1.00 Edema bilaterally Venous doppler negative for DVT VQ scan cancelled Does not seem to be a PE, no tachycardia, shortness of breath, oxygen supplementation not needed. (9) Atrial flutter: Qualifiers: Atrial flutter type: unspecified Qualified Code(s): I48.92 - Unspecified atrial flutter Code(s): I48.92 - Unspecified atrial flutter Status: Acute Assessment and Plan: EKG shows aflutter Eliquis started Possible cardioversion, however having some pretty significant bradycardia Telemonitor Time Spent With Patient Time with patient: Greater than 35 minutes Subjective Date/time seen: 10/28/211044 Interval history: 10/28/21 104 Patient was sitting in the chair. Patient states that he feels okay today. He was laughing and joking and feeling on the the [employer] [place] [employer] paper. He did state that his shortness of breath with activity was way better any denies any chest pain, shortness of breath, nausea, vomiting, diarrhea, constipation, weakness fatigue. He does still have about 2+ pitting edema however he states that he feels well. Renal function is at his baseline with creatinine 2.7. 10/27/21 0915 Doing ok today. Does not have any current complaints. He is wanting to go home. Explained to him that he
--- NOTE | 2021-10-28 10:45 | P.PNIM_ITS ---
Progress Note: A&P Assessment and Plan (1) Acute exacerbation of congestive heart failure: Code(s): I50.9 - Heart failure, unspecified Status: Acute Assessment and Plan: * Appears to have an exacerbation of congestive heart failure * type unknown though he does have a history of ischemic cardiomyopathy * echocardiogram EF of 45-50% with undetermined DD * Appears to be an exacerbation of combined diastolic and systolic heart failure. * Could also be exacerbated secondary to afib/flutter * renal function 40/2.70, baseline creatinine in 2.2-2.25 * BNP 2470 * Diuresis cautiously * Converted lasix to 40mg PO Daily * daily weights * Trend urine output * Trend labs (2) Chronic kidney disease: Code(s): N18.9 - Chronic kidney disease, unspecified Status: Acute Assessment and Plan: * Current BUN/Cr 40/2.70 * Labs from 01/2021 appears to be 2.2-2.25, [facility] showed a baseline of 2.7 * Avoid nephrotoxic medications * Strict I&Os * Bladder scan to check for retention * Renal ultrasound normal kidneys, no hydronephrosis * Trend closely with diuresis * Obtain urine studies: Urine sodium 128, Urea 319, Cr 59.8 * FEUrea 36.0 intrinsic renal disease * Consult Dr. Abreu (3) Insulin dependent type 2 diabetes mellitus: Code(s): E11.9 - Type 2 diabetes mellitus without complications; Z79.4 - [employer] (current) use of insulin Status: Acute Assessment and Plan: * Current glucose 106 * Continue basal insulin * Initiate sliding scale insulin * Accu-Cheks * hypoglycemic protocol * hemoglobin A1c 7.4 (4) Mixed hyperlipidemia: Code(s): E78.2 - Mixed hyperlipidemia Status: Acute Assessment and Plan: * Continue statin; LFTs within normal limits. (5) Benign hypertension: Code(s): I10 - Essential (primary) hypertension Status: Acute Assessment and Plan: * BP 138/73 * Continue irbesartan 300mg PO daily, amlodipine 5mg PO at night * Trend BP * Adjust therapy as indicated (6) Hypothyroidism: Code(s): E03.9 - Hypothyroidism, unspecified Status: Acute Assessment and Plan: * Continue levothyroxine * TSH 3.770 (7) Abnormal chest x-ray: Code(s): R93.89 - Abnormal findings on diagnostic imaging of other specified body structures Status: Acute Assessment and Plan: * He does not give a history to suggest pneumonia. Probable atelectasis, encourage incentive spirometry. (8) Elevated d-dimer: Code(s): R79.89 - Other specified abnormal findings of blood chemistry Status: Acute Assessment and Plan: * D. Dimer elevated at 1.00 * Edema bilaterally * Venous doppler negative for DVT * VQ scan cancelled * Does not seem to be a PE, no tachycardia, shortness of breath, oxygen supplementation not needed. (9) Atrial flutter: Qualifiers: Atrial flutter type: unspecified Qualified Code(s): I48.92 - Unspecified atrial flutter Code(s): I48.92 - Unspecified atrial flutter Status: Acute Assessment and Plan: * EKG shows aflutter * Eliquis started * Possible cardioversion, however having some pretty significant bradycardia * Telemonitor Time Spent With Patient Time with patient: Greater than 35 minutes Subjective Date/time seen: 10/28/21 1045 I
[2021-10-28 11:49] LABS: Glucose Point of Care 181 mg/dl (65-105)
--- NOTE | 2021-10-28 12:53 | P.PNCA_ITS ---
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 today * Unable to add a BB due to mild bradycardia * Hesitant to try spironolactone w/ GFR in this range * Farxiga is an option, though not likely to be very effective w/ GFR in this range * Cont irbesartan * Evaluate for recurrent ischemic dz w Ellie as OPT * Daily BMP, stable today * Anticipate d/c tomorrow <TIANA Marie - Last Filed: 10/28/21 13:31> (2) Atrial flutter: Qualifiers: Atrial flutter type: unspecified Qualified Code(s): I48.92 - Unspecified atrial flutter <TIANA Marie - Last Filed: 10/28/21 13:31> Code(s): I48.92 - Unspecified atrial flutter <TIANA Marie - Last Filed: 10/28/21 13:31> Status: Acute <TIANA Marie - Last Filed: 10/28/21 13:31> Assessment and Plan: H/O atrial flutter, maintaining NSR since 2019 * Now w/ recurrent a flutter, HR controlled w/o rate-limiting agents * Bradycardic at times, HR in 40's no sx * At risk for severe bradycardia if cardioversion attempted.? Pt can FU w/ DR. Gallegos for further discussion. * At risk for cardioembolic events; continue Eliquis 5mg p.o. q12h * As bradycardia progresses over time, may eventually need a pacemaker. <TIANA Marie - Last Filed: 10/28/21 13:31> (3) Coronary artery disease: Code(s): I25.10 - Atherosclerotic heart disease of [place] coronary artery without angina pectoris <TIANA Marie - Last Filed: 10/28/21 13:31> Status: Acute <TIANA Marie - Last Filed: 10/28/21 13:31> Assessment and Plan: H/O? [place] thought 2nd to coronary artery spasm, complicated by VSD. * Stable for many years * No typical angina * Lexiscan as OPT <TIANA Marie - Last Filed: 10/28/21 13:31> (4) CKD stage 4 due to type 2 diabetes mellitus: Code(s): E11.22 - Type 2 diabetes mellitus with diabetic chronic kidney disease; N18.4 - Chronic kidney disease, stage 4 (severe) <TIANA Marie - Last Filed: 10/28/21 13:31> Status: Acute <TIANA Marie - Last Filed: 10/28/21 13:31> Assessment and Plan: CKD progressing <TIANA Marie - Last Filed: 10/28/21 13:31> Additional Plan Attending Addendum: I agree with the above documentation and plan of care as outlined. <Frederick Barreto MD - Last Filed: 10/28/21 15:55> Subjective Date/time seen: 10/28/21 12:53 Cardiology follow up for CHF, atrial flutter <TIANA Marie - Last Filed: 10/28/21 13:31> Interval history: Feels well today. Breathing has improved though not ambulating much to assess for EDWARDS. Swelling has significantly improved. No chest pain. <TIANA Marie - Last Filed: 10/28/21 13:31> Exam Const: General: cooperative, healthy appearing and comfortable; No confusion <TIANA Marie - Last Filed: 10/28/21 13:31> Orientation/consciousness: oriented to person, patient oriented x3 and No confusion <TIANA Marie - Last Filed: 0
--- NOTE | 2021-10-28 12:53 | PM.PNCARD ---
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 today Unable to add a BB due to mild bradycardia Hesitant to try spironolactone w/ GFR in this range Farxiga is an option, though not likely to be very effective w/ GFR in this range Cont irbesartan Evaluate for recurrent ischemic dz w Ellie as OPT Daily BMP, stable today Anticipate d/c tomorrow <TIANA Marie - Last Filed: 10/28/21 13:31> (2) Atrial flutter: Qualifiers: Atrial flutter type: unspecified Qualified Code(s): I48.92 - Unspecified atrial flutter <TIANA Marie - Last Filed: 10/28/21 13:31> Code(s): I48.92 - Unspecified atrial flutter <TIANA Marie - Last Filed: 10/28/21 13:31> Status: Acute <TIANA Marie - Last Filed: 10/28/21 13:31> Assessment and Plan: H/O atrial flutter, maintaining NSR since 2019 Now w/ recurrent a flutter, HR controlled w/o rate-limiting agents Bradycardic at times, HR in 40's no sx At risk for severe bradycardia if cardioversion attempted.? Pt can FU w/ DR. Gallegos for further discussion. At risk for cardioembolic events; continue Eliquis 5mg p.o. q12h As bradycardia progresses over time, may eventually need a pacemaker. <TIANA Marie - Last Filed: 10/28/21 13:31> (3) Coronary artery disease: Code(s): I25.10 - Atherosclerotic heart disease of [place] coronary artery without angina pectoris <TIANA Marie - Last Filed: 10/28/21 13:31> Status: Acute <TIANA Marie - Last Filed: 10/28/21 13:31> Assessment and Plan: H/O? [place] thought 2nd to coronary artery spasm, complicated by VSD. Stable for many years No typical angina Lexiscan as OPT <TIANA Marie - Last Filed: 10/28/21 13:31> (4) CKD stage 4 due to type 2 diabetes mellitus: Code(s): E11.22 - Type 2 diabetes mellitus with diabetic chronic kidney disease; N18.4 - Chronic kidney disease, stage 4 (severe) <TIANA Marie - Last Filed: 10/28/21 13:31> Status: Acute <TIANA Marie - Last Filed: 10/28/21 13:31> Assessment and Plan: CKD progressing <TIANA Marie - Last Filed: 10/28/21 13:31> Additional Plan Attending Addendum: I agree with the above documentation and plan of care as outlined. <Frederick Barreto MD - Last Filed: 10/28/21 15:55> Subjective Date/time seen: 10/28/21 12:53 Cardiology follow up for CHF, atrial flutter <TIANA Marie - Last Filed: 10/28/21 13:31> Interval history: Feels well today. Breathing has improved though not ambulating much to assess for EDWARDS. Swelling has significantly improved. No chest pain. <TIANA Marie - Last Filed: 10/28/21 13:31> Exam Const: General: cooperative, healthy appearing and comfortable; No confusion <TIANA Marie - Last Filed: 10/28/21 13:31> Orientation/consciousness: oriented to person, patient oriented x3 and No confusion <TIANA Marie - Last Filed: 08/22/22 13:31> Other: Very pleasant elderly gentleman sitting up in the chair <TIANA Marie - Last Filed: 10/28/21 13:31> HENMT: Mouth: Yes moist mucous membranes <TIANA Marie - Last Filed: 10/28/21 13:31> Eyes: EOM: EOMs intact bilaterally <TIANA Marie - Last Filed: 10/28/21 13:31> Neck: Neck: supple and no JVD <TIANA Marie - Last Filed: 10/28/21 13:31> Thyroid: thyroid normal <
--- NOTE | 2021-10-28 13:55 | PM.PNNEP ---
Progress Note: A&P Assessment and Plan (1) JOHANNE (acute kidney injury): Code(s): N17.9 - Acute kidney failure, unspecified Status: Acute Assessment and Plan: creatinine elevated on admission evaluation to date: He had ultrasound which is unremarkable. urine electrolytes are non pre renal fractional excretion of urea suggesting intrinsic disease as well CPK okay with moderate tricuspid regurgitation, his renal venous blood pressure might be high inhibiting renal function - so his creatinine might improve with diuretics creatinine improving/stabilizing follow trend of repeat labs and UOP (2) Chronic kidney disease, stage IV (severe): Code(s): N18.4 - Chronic kidney disease, stage 4 (severe) Status: Chronic Assessment and Plan: baseline creatinine runs ~ 2.3 - 2.7mg/dl in the last year due to hypertension and diabetes based on outpatient evaluation (3) 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 Subjective Date/time seen: 10/28/21 13:55 Chart reviewed - assuming care from Dr. Abreu; no apparent distress voiced at this time; overall, states he feels significantly better with ongoing therapy/treatment; no issues/events overnight or earlier this morning. Objective Data Vital Signs Vital Signs: Vital Signs Temp Pulse Resp BP Pulse Ox O2 Del Method 10/28/21 12:00 46 L 10/28/21 08:00 59 L 10/28/21 08:32 Room Air 10/28/21 08:30 85 133/78 95 10/28/21 06:00 36.4 C 77 18 138/73 96 10/28/21 04:00 80 10/28/21 00:00 52 L 10/27/21 20:00 56 L 10/27/21 21:28 36.2 C L 50 L 18 150/61 H 97 10/27/21 19:39 Room Air 10/27/21 16:00 41 L Intake/Output Intake/Output: Intake & Output 10/25/21 10/26/21 10/27/21 10/28/21 23:59 23:59 23:59 23:59 Intake Total 1342 1922 1140 Output Total 200 Balance 1142 1922 1140 Meds/Results Medications: Active Medications Generic Name Dose Route Start Last Admin Trade Name Christi PRN Reason Stop Dose Admin Amlodipine Besylate 10 mg 10/26/21 21:00 10/27/21 20:02 Amlodipine Besylate 5 Mg Tablet PO 10 mg HS ALFREDA Administration Apixaban 5 mg 10/26/21 21:00 10/28/21 08:36 Apixaban 5 Mg Tablet PO 5 mg Q12HR ALFREDA Administration Dextrose 12.5 gm 10/25/21 22:40 Dextrose 50% 25 Gm/50 Ml Syringe IV PUSH PRN PRN Hypoglycemia Protocol Folic Acid 1 mg 10/26/21 21:00 10/27/21 20:02 Folic Acid 1 Mg Tablet PO 1 mg HS ALFREDA Administration Furosemide 40 mg 10/28/21 09:00 10/28/21 08:36 Furosemide 40 Mg Tablet PO 40 mg DAILY ALFREDA Administration Glucagon 1 mg 10/25/21 22:40 Glucagon For Inj 1 Mg Vial IM PRN PRN Hypoglycemia Protocol Glucose 15 gm 10/25/21 22:40 Glucose Oral Gel 15 Gm Of Glucse In 37.5 Gm Tube PO PRN PRN Hypoglycemia Protocol Dextrose 1,000 mls @ 100 mls/hr 10/25/21 22:40 Dextrose 5% 1,000 Ml IVPB PRN PRN Hypoglycemia Protocol Insulin Aspart 2 - 5 units 10/26/21 08:00 10/28/21 11:51 Insulin Aspart (*Bkc) 100 Units/Ml SUB-Q Not Given TIDWM ALFREDA Protocol Insulin Glargine 28 units 10/25/21 22:50 10/27/21 17:40 Insulin Glargine (*Bkc) 100 Units/Ml SUB-Q 28 units QPM ALFREDA Administration Irbesartan 300 mg 10/26/21 09:00 10/28/21 08:36 Irbesartan 150 Mg Tablet PO 300 mg DAILY ALFREDA Administration Levothyroxine Sodium 25 mcg 10/26/21 06:30 10/28/21 05:33 Levothyroxine Sodium 25 Mcg Tablet PO 25 mcg DAILY@0630 ALFREDA Administration Perflutr
[2021-10-28 17:15] LABS: Glucose Point of Care 181 mg/dl (65-105)
[2021-10-28] MEDS: INSULIN GLARGINE (*BKC) 100 UNITS/ML 28 UNITS SUB-Q (17:26)
[2021-10-28] MEDS: amLODIPine BESYLATE 5 MG TABLET 10 MG PO (21:01)
[2021-10-28] MEDS: FOLIC ACID 1 MG TABLET PO (21:01)
[2021-10-28] MEDS: CHOLECALCIFEROL 1,000 UNITS TABLET 4000 UNITS PO (21:01)
[2021-10-28 21:14] LABS: Glucose Point of Care 265 mg/dl (65-105)
[2021-10-29] VITALS: PULSE 51
[2021-10-29 04:00] VITALS: PULSE 54
[2021-10-29] MEDS: LEVOTHYROXINE SODIUM 25 MCG TABLET PO (05:56)
[2021-10-29 06:14] LABS: Albumin Level 3.6 g/dL (3.5-5.1); Anion Gap 11 mmol/L (8-16); Blood Urea Nitrogen 37 mg/dL (9-20); Calcium 8.3 mg/dL (8.4-10.2); Carbon Dioxide 23 mmol/L (22-30); Chloride 102 mmol/L (98-107); Estimated CRCL calculation 22 ml/min; Estimated Glomerular Filt Rate 22; Glucose 91 mg/dL (65-110); Phosphorus 5.1 mg/dL (2.5-4.5); Potassium 4.3 mmol/L (3.4-5.0); Sodium 136 mmol/L (137-145)
[2021-10-29 06:20] VITALS: BP 125/48; PULSE 67; RESP 20; TEMP 36.6; O2SAT 98
[2021-10-29 08:00] VITALS: PULSE 62
--- NOTE | 2021-10-29 08:34 | P.PNCA_ITS ---
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: Code(s): I50.41 - Acute combined systolic (congestive) and diastolic (congestive) heart failure Status: Acute Assessment and Plan: New onset CHF, EF 45% (no change in EF) * Aggravated by Na+ intake, worsening renal fxn and recurrent atrial flutter * Improved with diuresis * Unable to add a BB due to mild bradycardia * Hesitant to try spironolactone w/ GFR in this range * Farxiga is an option, though not likely to be very effective w/ GFR in this range * Cont irbesartan * Evaluate for recurrent ischemic dz w Ellie as OPT * BMP stable this morning * OK for discharge home today with close outpatient follow up (2) Atrial flutter: Qualifiers: Atrial flutter type: unspecified Qualified Code(s): I48.92 - Unspecified atrial flutter Code(s): I48.92 - Unspecified atrial flutter Status: Acute Assessment and Plan: H/O atrial flutter, maintaining NSR since 2019 * Now w/ recurrent a flutter, HR controlled w/o rate-limiting agents * Bradycardic at times, HR in 40's no sx * At risk for severe bradycardia if cardioversion attempted.? Pt can FU w/ DR. Gallegos for further discussion. * At risk for cardioembolic events; continue Eliquis 5mg p.o. q12h * As bradycardia progresses over time, may eventually need a pacemaker. (3) Coronary artery disease: Code(s): I25.10 - Atherosclerotic heart disease of [place] coronary artery without angina pectoris Status: Acute Assessment and Plan: H/O? IL thought 2nd to coronary artery spasm, complicated by VSD. * Stable for many years * No typical angina * Lexiscan as OPT (4) CKD stage 4 due to type 2 diabetes mellitus: Code(s): E11.22 - Type 2 diabetes mellitus with diabetic chronic kidney disease; N18.4 - Chronic kidney disease, stage 4 (severe) Status: Acute Assessment and Plan: CKD progressing Additional Plan Attending Addendum: I agree with the above documentation and plan of care as outlined. Subjective Date/time seen: 10/29/21 08:34 Cardiology follow up for CHF, atrial flutter Feeling well this morning. Swelling has nearly resolved. Denies any shortness of breath, orthopnea. No palpitations, chest pain. Review of Systems Constitutional: Constitutional: Denies fever(s) Eyes: Eyes: Reports no additional eye complaints ENT: Denies epistaxis Cardiovascular: Cardiovascular: Denies chest pain, Reports pedal edema, Reports leg edema, Denies lightheadedness, Denies palpitations, Reports dyspnea and Reports dyspnea on exertion Respiratory: Respiratory: Denies chest congestion, Reports dyspnea and Reports dyspnea on exertion Gastrointestinal: Gastrointestinal: Denies abdominal pain, Denies hematochezia and Denies hematemesis Genitourinary: Genitourinary: Denies hematuria Musculoskeletal: Musculoskeletal: Reports no additional musculoskeletal complaints Integumentary/Breasts: Skin/Breast: Reports system reviewed and no additional complaints, except as docu Neurologic: Reports system reviewed and no additional complaints, except as documented, Denies behavioral changes and Denies confusion Psychiatric: Psychiatric: Denies behavioral changes and Denies confusion Endocrine: Endocrine: Denies palpitations Exam Narrative: Anima
--- NOTE | 2021-10-29 08:34 | PM.PNCARD ---
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: Code(s): I50.41 - Acute combined systolic (congestive) and diastolic (congestive) heart failure Status: Acute Assessment and Plan: New onset CHF, EF 45% (no change in EF) Aggravated by Na+ intake, worsening renal fxn and recurrent atrial flutter Improved with diuresis Unable to add a BB due to mild bradycardia Hesitant to try spironolactone w/ GFR in this range Farxiga is an option, though not likely to be very effective w/ GFR in this range Cont irbesartan Evaluate for recurrent ischemic dz w Ellie as OPT BMP stable this morning OK for discharge home today with close outpatient follow up (2) Atrial flutter: Qualifiers: Atrial flutter type: unspecified Qualified Code(s): I48.92 - Unspecified atrial flutter Code(s): I48.92 - Unspecified atrial flutter Status: Acute Assessment and Plan: H/O atrial flutter, maintaining NSR since 2019 Now w/ recurrent a flutter, HR controlled w/o rate-limiting agents Bradycardic at times, HR in 40's no sx At risk for severe bradycardia if cardioversion attempted.? Pt can FU w/ DR. Gallegos for further discussion. At risk for cardioembolic events; continue Eliquis 5mg p.o. q12h As bradycardia progresses over time, may eventually need a pacemaker. (3) Coronary artery disease: Code(s): I25.10 - Atherosclerotic heart disease of [place] coronary artery without angina pectoris Status: Acute Assessment and Plan: H/O? PR thought 2nd to coronary artery spasm, complicated by VSD. Stable for many years No typical angina Lexiscan as OPT (4) CKD stage 4 due to type 2 diabetes mellitus: Code(s): E11.22 - Type 2 diabetes mellitus with diabetic chronic kidney disease; N18.4 - Chronic kidney disease, stage 4 (severe) Status: Acute Assessment and Plan: CKD progressing Additional Plan Attending Addendum: I agree with the above documentation and plan of care as outlined. Subjective Date/time seen: 10/29/21 08:34 Cardiology follow up for CHF, atrial flutter Feeling well this morning. Swelling has nearly resolved. Denies any shortness of breath, orthopnea. No palpitations, chest pain. Review of Systems Constitutional: Constitutional: Denies fever(s) Eyes: Eyes: Reports no additional eye complaints ENT: Denies epistaxis Cardiovascular: Cardiovascular: Denies chest pain, Reports pedal edema, Reports leg edema, Denies lightheadedness, Denies palpitations, Reports dyspnea and Reports dyspnea on exertion Respiratory: Respiratory: Denies chest congestion, Reports dyspnea and Reports dyspnea on exertion Gastrointestinal: Gastrointestinal: Denies abdominal pain, Denies hematochezia and Denies hematemesis Genitourinary: Genitourinary: Denies hematuria Musculoskeletal: Musculoskeletal: Reports no additional musculoskeletal complaints Integumentary/Breasts: Skin/Breast: Reports system reviewed and no additional complaints, except as docu Neurologic: Reports system reviewed and no additional complaints, except as documented, Denies behavioral changes and Denies confusion Psychiatric: Psychiatric: Denies behavioral changes and Denies confusion Endocrine: Endocrine: Denies palpitations Exam Narrative: Animated pleasant older male a up and about in his room, no distress Const: General: cooperative, healthy appearing and comfortable; No confusion Orientation/consciousness: oriented to person, patient oriented x3 and No confusion Other: Very pleasant elderly gentleman sitting up in the chair HENMT: Mouth: Yes moist mucous membranes Eyes: EOM: EOMs intact bilaterally Neck: Neck: supple and no JVD Thyroid: thyroid normal Carotids: no bruits Resp: Effort & Inspection: normal respiratory effort Auscultation: clear to auscultation bilaterally Cardio: Rate: regular r
[2021-10-29] MEDS: APIXABAN 5 MG TABLET PO (08:35)
[2021-10-29] MEDS: FUROSEMIDE 40 MG TABLET PO (08:35)
[2021-10-29] MEDS: PRAVASTATIN SODIUM 20 MG TABLET PO (08:35)
[2021-10-29] MEDS: IRBESARTAN 150 MG TABLET 300 MG PO (08:35)
[2021-10-29 09:04] LABS: Glucose Point of Care 125 mg/dl (65-105)
--- NOTE | 2021-10-29 09:30 | PM.DS ---
DS: Admitting Diagnosis Discharge Date 10/29/21929 Admitting Diagnosis CHF exacerbation DS: Discharge Diagnosis Discharge Diagnosis (1) Acute exacerbation of congestive heart failure: Code(s): I50.9 - Heart failure, unspecified Status: Acute Assessment and Plan: Appears to have an exacerbation of congestive heart failure type unknown though he does have a history of ischemic cardiomyopathy echocardiogram EF of 45-50% with undetermined DD Appears to be an exacerbation of combined diastolic and systolic heart failure. Could also be exacerbated secondary to afib/flutter renal function 40/2.70, baseline creatinine in 2.2-2.25 BNP 2470 Diuresis cautiously Converted lasix to 40mg PO Daily daily weights Trend urine output Trend labs (2) Chronic kidney disease: Code(s): N18.9 - Chronic kidney disease, unspecified Status: Acute Assessment and Plan: Current BUN/Cr 37/2.80 Labs from 01/2021 appears to be 2.2-2.25, [facility] showed a baseline of 2.7 Avoid nephrotoxic medications Strict I&Os Bladder scan to check for retention Renal ultrasound normal kidneys, no hydronephrosis Trend closely with diuresis Obtain urine studies: Urine sodium 128, Urea 319, Cr 59.8 FEUrea 36.0 intrinsic renal disease Consult Dr. 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 (5) Benign hypertension: Code(s): I10 - Essential (primary) hypertension Status: Acute Assessment and Plan: BP 145/57 Continue irbesartan 300mg PO daily, amlodipine 5mg PO at night Trend BP Adjust therapy as indicated (6) Hypothyroidism: Code(s): E03.9 - Hypothyroidism, unspecified Status: Acute Assessment and Plan: Continue levothyroxine TSH 3.770 (7) Abnormal chest x-ray: Code(s): R93.89 - Abnormal findings on diagnostic imaging of other specified body structures Status: Acute Assessment and Plan: Not relevant at this time He does not give a history to suggest pneumonia. Probable atelectasis, encourage incentive spirometry. (8) Elevated d-dimer: Code(s): R79.89 - Other specified abnormal findings of blood chemistry Status: Acute Assessment and Plan: D. Dimer elevated at 1.00 Edema bilaterally Venous doppler negative for DVT VQ scan cancelled Does not seem to be a PE, no tachycardia, shortness of breath, oxygen supplementation not needed. (9) Atrial flutter: Qualifiers: Atrial flutter type: unspecified Qualified Code(s): I48.92 - Unspecified atrial flutter Code(s): I48.92 - Unspecified atrial flutter Status: Acute Assessment and Plan: EKG shows aflutter Eliquis started Possible cardioversion, however having some pretty significant bradycardia Telemonitor DS: Summary Hospital Course Hospital Course: Patient is a 68-year-old male with a past medical history a flutter hypertension, CKD, hyperlipidemia who presented to the ED with complaints of shortness of breath. Upon arrival patient was noted to have a BNP 2470. Renal function was elevated with creatinine of 3.5. Urine studies were obtained and patient was noted to have intrinsic disease. Nephrology was also consulted for further recommendations. It was noted that his baseline is 2.7 per [facility]. Patient was diuresed and Cardiology was consulted for CHF exacerbation. Amado has been
--- NOTE | 2021-10-29 09:30 | P.DS_ITS ---
DS: Admitting Diagnosis Discharge Date 10/29/21929 Admitting Diagnosis CHF exacerbation DS: Discharge Diagnosis Discharge Diagnosis (1) Acute exacerbation of congestive heart failure: Code(s): I50.9 - Heart failure, unspecified Status: Acute Assessment and Plan: * Appears to have an exacerbation of congestive heart failure * type unknown though he does have a history of ischemic cardiomyopathy * echocardiogram EF of 45-50% with undetermined DD * Appears to be an exacerbation of combined diastolic and systolic heart failure. * Could also be exacerbated secondary to afib/flutter * renal function 40/2.70, baseline creatinine in 2.2-2.25 * BNP 2470 * Diuresis cautiously * Converted lasix to 40mg PO Daily * daily weights * Trend urine output * Trend labs (2) Chronic kidney disease: Code(s): N18.9 - Chronic kidney disease, unspecified Status: Acute Assessment and Plan: * Current BUN/Cr 37/2.80 * Labs from 01/2021 appears to be 2.2-2.25, [facility] showed a baseline of 2.7 * Avoid nephrotoxic medications * Strict I&Os * Bladder scan to check for retention * Renal ultrasound normal kidneys, no hydronephrosis * Trend closely with diuresis * Obtain urine studies: Urine sodium 128, Urea 319, Cr 59.8 * FEUrea 36.0 intrinsic renal disease * Consult Dr. 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 (5) Benign hypertension: Code(s): I10 - Essential (primary) hypertension Status: Acute Assessment and Plan: * BP 145/57 * Continue irbesartan 300mg PO daily, amlodipine 5mg PO at night * Trend BP * Adjust therapy as indicated (6) Hypothyroidism: Code(s): E03.9 - Hypothyroidism, unspecified Status: Acute Assessment and Plan: * Continue levothyroxine * TSH 3.770 (7) Abnormal chest x-ray: Code(s): R93.89 - Abnormal findings on diagnostic imaging of other specified body structures Status: Acute Assessment and Plan: * Not relevant at this time * He does not give a history to suggest pneumonia. Probable atelectasis, encourage incentive spirometry. (8) Elevated d-dimer: Code(s): R79.89 - Other specified abnormal findings of blood chemistry Status: Acute Assessment and Plan: * D. Dimer elevated at 1.00 * Edema bilaterally * Venous doppler negative for DVT * VQ scan cancelled * Does not seem to be a PE, no tachycardia, shortness of breath, oxygen supplementation not needed. (9) Atrial flutter: Qualifiers: Atrial flutter type: unspecified Qualified Code(s): I48.92 - Unspecified atrial flutter Code(s): I48.92 - Unspecified atrial flutter Status: Acute Assessment and Plan: * EKG shows aflutter * Eliquis started * Possible cardioversion, however having some pretty significant bradycardia * Telemonitor
[2021-10-29 12:00] VITALS: PULSE 54
[2021-10-29 12:19] LABS: Glucose Point of Care 125 mg/dl (65-105)
[2021-10-29 15:13] LABS: Osmolality, Urine 398 mOsm/kg (50-1200)
== END 2021-10-29 12:43 | disposition home or self-care (01) ==
LOC: ANHED 15:20 → ANH2MED 10-26 07:28
PROVIDERS: Internal Medicine Nephrology; Physician Assistant; Admitting Provider Student in an Organized Health Care Education/Training Program; Emergency Provider Nurse Practitioner Family; PCP Family Medicine; Visit Provider Nurse Practitioner
DX: I13.0 Hypertensive heart and chronic kidney disease with heart failure and stage 1 through stage 4 chronic kidney disease, or unspecified chronic kidney disease (principal); E11.22 Type 2 diabetes mellitus with diabetic chronic kidney disease; I50.41 Acute combined systolic (congestive) and diastolic (congestive) heart failure; N18.4 Chronic kidney disease, stage 4 (severe); E78.2 Mixed hyperlipidemia; E03.9 Hypothyroidism, unspecified; R93.89 Abnormal findings on diagnostic imaging of other specified body structures; R79.89 Other specified abnormal findings of blood chemistry; I48.92 Unspecified atrial flutter; R06.02 Shortness of breath; I25.5 Ischemic cardiomyopathy; I25.10 Atherosclerotic heart disease of native coronary artery without angina pectoris; R80.9 Proteinuria, unspecified; K51.90 Ulcerative colitis, unspecified, without complications; I44.0 Atrioventricular block, first degree; Q21.0 Ventricular septal defect; I25.2 Old myocardial infarction; I08.1 Rheumatic disorders of both mitral and tricuspid valves; R06.01 Orthopnea; E53.8 Deficiency of other specified B group vitamins; M19.031 Primary osteoarthritis, right wrist; Z82.49 Family history of ischemic heart disease and other diseases of the circulatory system; R35.1 Nocturia; M71.22 Synovial cyst of popliteal space [Baker], left knee; Z87.891 Personal history of nicotine dependence; Z79.4 Long term (current) use of insulin; Z79.899 Other long term (current) drug therapy
CPT/HCPCS: 36415; 71045; 71046; 76775; 80048; 80053; 80069; 81001; 82570; 82948; 83036; 83735; 83880; 83935; 84300; 84443; 84484; 84540; 85025; 85027; 85380; 85610; 85730; 93005; 93306; 93970; 96372; 96374; 96376; 99285; A9270; G0378; J1650; J1815; J1940

== ENCOUNTER 2021-11-05 10:04 | Outpatient (CLI) | payer MEDICARE, SELFPAY ==
[2021-11-05 10:57] LABS: Alanine Aminotransferase 19 U/L (6-50); Albumin Level 4.2 g/dL (3.5-5.1); Alkaline Phosphatase 70 U/L (38-126); Anion Gap 7 mmol/L (8-16); Aspartate Amino Transferase 21 U/L (17-59); Bilirubin,Total 0.4 mg/dL (0.2-1.3); Blood Urea Nitrogen 39 mg/dL (9-20); Calcium 9.1 mg/dL (8.4-10.2); Carbon Dioxide 22 mmol/L (22-30); Chloride 106 mmol/L (98-107); Estimated Glomerular Filt Rate 19; Glucose 204 mg/dL (65-110); Potassium 4.8 mmol/L (3.4-5.0); Sodium 135 mmol/L (137-145)
== END 2021-11-05 10:05 | disposition home or self-care (01) ==
PROVIDERS: PCP Family Medicine; Referring Provider Internal Medicine Nephrology; Visit Provider Nurse Practitioner
DX: E11.22 Type 2 diabetes mellitus with diabetic chronic kidney disease (principal); N18.4 Chronic kidney disease, stage 4 (severe)
CPT/HCPCS: 36415; 80053

== ENCOUNTER 2022-09-02 11:01 | Outpatient (CLI) | payer MEDICARE, SELFPAY ==
--- NOTE | ~2022-09-02 | XR_ITS ---
Clinical Indication: Cough PA and lateral views of the chest: Comparison: 10/27/2021 Findings: The lungs are clear, without evidence of focal consolidation or pleural effusion. Cardiome diastinal silhouette is stable, status post median sternotomy. Bones and soft tissues are unremarkabl e. Impression: Clear lungs. Reviewed, dictated and finalized at location . Impression: Clear lungs.
== END 2022-09-02 11:02 | disposition home or self-care (01) ==
LOC: ANHIMG 11:07
PROVIDERS: PCP Family Medicine; Visit Provider Family Medicine
DX: R05.9 Cough, unspecified (principal); I10 Essential (primary) hypertension; R06.09 Other forms of dyspnea
CPT/HCPCS: 71046

== ENCOUNTER 2022-10-20 12:34 | Outpatient (CLI) | payer MEDICARE, SELFPAY ==
--- NOTE | 2022-10-21 07:13 | WPDSIXMINUTE ---
Six Minute Walk Procedure Procedure Performed Pulmonary Stress Test (6 min walk) Six Minute Walk Six Minute Walk: This is a 6 minute walk test. The test was performed and interpreted in accordance with the 2014 ERS/ATS task force guidelines. Findings: The patient's resting room air oxygen saturation measured by pulse oximetry was 93% and heart rate was 78 bpm. Patient ambulated for 244 meters and oxygen saturation remained 91 to 94%. Heart rate at the end of the study was 84 bpm. The patient did not qualify for supplemental oxygen at rest or with ambulation. There are no prior studies for comparison.
== END 2022-10-20 12:35 | disposition home or self-care (01) ==
PROVIDERS: PCP Family Medicine; Visit Provider Family Medicine
DX: R06.00 Dyspnea, unspecified (principal)
CPT/HCPCS: 94618

== ENCOUNTER 2022-11-23 08:30 | Emergency (ER) | payer MEDICARE, SELFPAY ==
--- NOTE | 2022-11-23 08:30 | ED.DENTAL ---
HPI - Dental/Oral General Chief complaint: Dental/Oral Stated complaint: tooth pain Time Seen by Provider: 11/23/22 08:30 History of Present Illness HPI Narrative: Patient is a 77 year old male with history of afib, CHF, CAD, DM here with dental pain and facial swelling. Patient states that about 2 weeks ago he had a filling that broke off of a tooth on the left lower side. He notes that he has been doing well until yesterday when he began having pain in that left lower jaw. Today he woke up and it was significantly swollen on the same side. He has been taking tylenol at home which has helped the pain. He denies fever, chills, difficulty breathing or swallowing. No neck pain or fullness. He has a dentist, did not contact them because it is the weekend but plans to call them tomorrow to coordinate follow up this week. No antibiotic allergies. Location: Tooth # (20) Related Data Home Medications Medication Instructions Recorded Confirmed L.acidophil,salivari-Bifido 1 cap PO DAILY 10/25/21 11/23/22 bifidum-Strep thermoph 175 mg capsule (Acidophilus Probiotic Blend) aloe vera 5,000 mg capsule 10,000 mg PO DAILY 10/25/21 11/23/22 apixaban 5 mg tablet (Eliquis) 5 mg PO BID 12/18/21 11/23/22 cholecalciferol (vitamin D3) 50 10,000 unit PO HS 03/11/22 11/23/22 mcg (2,000 unit) capsule (Vitamin D3) acidophilus 100 million 1 cap PO DAILY 09/02/22 11/23/22 cell-pectin, citrus 10 mg capsule sacubitril 24 mg-valsartan 26 mg 1 tablet PO BID 09/11/22 11/23/22 tablet (Entresto) amlodipine 10 mg tablet 10 mg PO DAILY 11/17/22 11/23/22 empagliflozin 10 mg tablet 10 mg PO DAILY 11/23/22 11/23/22 (Jardiance) insulin glargine 100 unit/mL (3 32 unit subcut DAILY 11/23/22 11/23/22 mL) subcutaneous pen (Lantus Solostar U-100 Insulin) levothyroxine 25 mcg tablet 25 mcg PO DAILY 11/23/22 11/23/22 (Synthroid) Allergies Allergy/AdvReac Type Severity Reaction Status Date / Time iodine Allergy Unknown Anaphylaxis Verified 11/23/22 08:35 SHELLFISH Allergy Unknown Unknown Uncoded 11/23/22 08:35 Review of Systems Review of Systems: CONSTITUTIONAL: Denies fever, chills, or sweats. ENT: Dental pain. No difficulty swallowing. No sore throat. No neck pain. CARDIOVASCULAR: Denies chest pain, or edema. RESPIRATORY: Denies cough or dyspnea. GASTROINTESTINAL: Denies abdominal pain, nausea, vomiting NEUROLOGIC: Denies headache [facility] Past Medical History Medical History Abnormal chest x-ray Acute exacerbation of congestive heart failure Atrial flutter Basal cell carcinoma Benign hypertension Chronic kidney disease Coronary artery disease History of inferoseptal infarction resulting in acute VSD requiring surgical repair. 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 Code status: Full code. Smoking packs per day: 3 Smoking cigarettes per day: 60.0 Years smoked: 30 Smoking pack-years: 90.00 Smoking status: Former smoker Second hand tobacco smoke exposure: No Additional smoking assessment comments: Quit in 1998. Alcohol intake: former
[2022-11-23 08:37] VITALS: BP 144/69; PULSE 80; RESP 18; TEMP 36.9; O2SAT 97
[2022-11-23 08:38] LABS: Glucose Point of Care 179 mg/dl (65-105)
[2022-11-23] MEDS: LIDOCAINE HCL 1% LOCAL INJ 10 ML VIAL INFILTRATE (09:14)
[2022-11-23] MEDS: BUPivacaine HCL 0.5% PF 30 ML VIAL INFILTRATE (09:15)
--- NOTE | 2022-11-23 09:30 | PC.NURSE ---
On 11/23/22, the student, [russ watkins ], provided care and completed [facility] documentation on this patient. I have reviewed the student's documentation and agree with the findings.
[2022-11-23 09:38] VITALS: BP 140/70; PULSE 77; RESP 18; TEMP 36.9; O2SAT 96
== END 2022-11-23 09:48 | disposition home or self-care (01) ==
LOC: CHSED 09:08
PROVIDERS: Emergency Provider Student in an Organized Health Care Education/Training Program; PCP Family Medicine
DX: K04.7 Periapical abscess without sinus (principal); I48.91 Unspecified atrial fibrillation; I25.10 Atherosclerotic heart disease of native coronary artery without angina pectoris; E03.9 Hypothyroidism, unspecified; I13.0 Hypertensive heart and chronic kidney disease with heart failure and stage 1 through stage 4 chronic kidney disease, or unspecified chronic kidney disease; I50.9 Heart failure, unspecified; N18.9 Chronic kidney disease, unspecified; E11.22 Type 2 diabetes mellitus with diabetic chronic kidney disease; Z79.01 Long term (current) use of anticoagulants; Z79.899 Other long term (current) drug therapy; Z87.891 Personal history of nicotine dependence
CPT/HCPCS: 41800; 82948; 99283